=== PATIENT | male | born 1945 | race Caucasian/White ===

== ENCOUNTER → 2016-08-31 | Day surgery (SDC) | payer OTHER ==
--- NOTE | 2016-08-29 14:01 | History & Physical Pre-Op ---
General Information and HPI History of Present Illness: Patient presents for evaluation of possible incisional hernia. He under went lap pollo 2002 and noted a lump near the epigastric port site a few months ago. He is worried about it. It doesn't cause pain. There is no n/v or change to bowel function. His primary feels that it is a hernia but patient would like confirmation from a surgeon. he exercises regularly at the gym and plays tennis. Allergies/Medications Allergies: Coded Allergies: NO KNOWN ALLERGIES (08/26/16) Home Med list Lisinopril 20 MG TABLET 1 TAB PO DAILY BP (Reported) Simvastatin (Zocor*) 10 MG TABLET 1 TAB PO QPM CHOLESTEROL (Reported) Past History Medical History Cardiovascular: hypertension, hyperlipidemia Respiratory: asthma Surgical History Pertinent Surgical History: cholecystectomy, tonsillectomy Review of Systems Review of Systems: Patient reports no fatigue, no fever, no night sweats, no significant weight gain, no significant weight loss, and no exercise intolerance. He reports no abnormal moles, no jaundice, no hives, no eczema, and no rashes. He reports no dry eyes, no irritation, no vision change, and no discharge. He reports no hearing loss, no ear pain, no sneezing, no frequent nosebleeds, no nose/sinus problems, no bleeding gums, no snoring, no dry mouth, no mouth ulcers, no oral abnormalities, no teeth problems, no headaches, and no sore throat. He reports no swollen glands and no neck stiffness. He reports no cough, no wheezing, no shortness of breath, and no coughing up blood. He reports no chest pain, no arm pain on exertion, no shortness of breath when walking, no shortness of breath when lying down, no palpitations, and no known heart murmur. He reports normal appetite, no abdominal pain, no vomiting, no vomiting blood, no bloating, no diarrhea, no belching, no constipation, no regurgitation, and no rectal bleeding. He reports no incontinence, no difficulty urinating, no hematuria, and no increased frequency. He reports no muscle aches, no muscle weakness, no arthralgias/joint pain, and no back pain. Exam & Diagnostic Data Physical Exam: Patient is a 70-year-old male. Constitutional: General Appearance: healthy-appearing, well-nourished, and well- developed. Level of Distress: no acute distress. Ambulation: ambulating normally. Head: Head: normocephalic and atraumatic. Neck: Neck: supple, trachea midline, no masses, and full range of motion. Thyroid: no enlargement or nodules and non-tender. Lymph Nodes: no cervical LAD, supraclavicular LAD, axillary LAD, or inguinal LAD. Lungs: Respiratory effort: no dyspnea. Back: Thoracolumbar Appearance: normal curvature. Abdomen: Inspection and Palpation: no tenderness, guarding, masses, rebound tenderness, or CVA tenderness and soft and non-distended. Bowel Sounds: normal. Liver: non-tender and no hepatomegaly. Spleen: non-tender and no splenomegaly. Hernia: incisional (small reducible hernia to the right of the epigastric port site. 12mm port. defect is subcentimeter). Skin: Inspection and palpation: no rash, lesions, ulcer, induration, nodules, jaundice, or abnormal nevi and good turgor. Musculoskeletal:: Extremities: no cyanosis, edema, varicosities, or palpable cord. Motor Strength and Tone: normal tone and motor strength. Joints, Bones, and Muscles: no contractures, malalignment, tenderness, or bony abnormalities and normal movement of all extremities. Psychiatric: Insight: good judgement and insight. Mental Status: normal mood and affect and active and alert. Orientation: to time, place, and person. Memory: recent memory normal and remote memory normal. Assessment/Plan Assessment/Plan: Incisional hernia - this is a small fat-containing incisional hernia related to a 12 mm epigastric port site from his laparoscopic cholecystectomy in 2002. Fascial defect is very small. The herniated contents are composed of preperitoneal fat. I recommend he undergo open incisional hernia repair with mesh at his earliest convenience. He would like to postpone surgery until his hernia becomes more symptomatic and/or larger. I feel that it represents a low risk hernia for bowel incarceration due to the location of it in proximity to the falciform ligament. K43.2: Incisional hernia without obstruction or gangrene Discussion Discussion Notes Discussed emergent complications of oberved hernias including increasing pain, distention, nausea and vomiting. Discussed erythema of hernia site as well. Patient understands to call me urgently or go to ER should these findings develop. Discussed hernia repair with mesh, the need for general anesthesia to perform it and the outpatient nature of surgery. Discussed the outcomes of surgery including 3-5% recurrence rate, 1% infection and bleeding risk. Discussed the permanent nature of mesh for repair and need for removal if infection occurs. As Ranked By This Provider Problem List: 1. Incisional hernia
[~2016-08-31] VITALS: Ht 180.3 cm; Wt 98.9 kg
[~2016-08-31] MED LIST: ASPIR 8181 MG PO; CLONAZEPAM0.5 MG PO; LISINOPRIL20 MG PO; SIMVASTATIN20 MG PO; VIAGRA25 M1 PO; ZOCOR10 M1 PO
--- NOTE | 2016-08-31 13:36 | Operative Report ---
Operative/Inv Procedure Report Surgery Date: 08/31/16 Name of Procedure: Incisional hernia repair. Pre-Operative Diagnosis: incisional hernia Post-Operative Diagnosis: same Estimated Blood Loss: scant Surgeon/Vertical Mill Operator: PENELOPE MAGALLON,LEIF Musa/Kurt ley Anesthesia: laryngeal mask airway Implants: none Operative/Procedure Note Note: Patient was brought to the operating room and laid supine. Gen. anesthesia was obtained and his abdomen was prepped and draped. Preoperatively the skin was marked over the site of his hernia. Incision was made through pre-existing scar , related to prior laparoscopic cholecystectomy. We dissected down through the tissues with electrocautery. A small fascial defect was identified with incarcerated preperitoneal fat. The tissues were circumferentially dissected and the hernia contents and reduced. The fascial edges were assessed and cleared of attenuated tissue. The fascial defect measured 6 mm. I elected to repair it primarily with interrupted Maxon suture. Wound was then irrigated with saline incision closed 4-0 Vicryl. Steri-Strips and sterile dressing applied. Sponge and needle counts are correct CC: NINA MAGALLON,SUYAPA Alvarado
== END ==
LOC: STS 01:12
DX: K43.2 Incisional hernia without obstruction or gangrene (principal); I10 Essential (primary) hypertension; E78.5 Hyperlipidemia, unspecified
CPT/HCPCS: J0131; J0690; J1100; J2250; J2405